=== PATIENT | female | born 2000 | race Caucasian/White ===

== ENCOUNTER 2021-03-29 04:04 | Inpatient (IN) ==
[2021-03-29] MEDS ORDERED: Ondansetron 4 MG/2 ML VIAL IVP PRN (04:13)
[2021-03-29] MEDS ORDERED: Naloxone 0.4 MG/ML INJ IVP PRN (04:13)
[2021-03-29] MEDS ORDERED: Penicillin G Potassium 5,000,000 UNIT in 0.9 % Sodium Chloride Mini Bag 100 ML IVPB ONE (04:13)
[2021-03-29] MEDS ORDERED: Famotidine 20 MG/2 ML VIAL IVP PRN (04:13)
[2021-03-29] MEDS ORDERED: Lidocaine 1% 20 ML MDV INFILT PRN (04:13)
[2021-03-29] MEDS ORDERED: Metoclopramide 10 MG/2 ML VIAL IVP PRN (04:13)
[2021-03-29] MEDS ORDERED: *HR* Nalbuphine 10 MG/ML AMPUL IV PRN (04:13)
[2021-03-29] MEDS ORDERED: miSOPROStoL 25 MCG TABLET PO PRN (04:13)
[2021-03-29] MEDS ORDERED: Ringers Solution, Lactated 1,000 ML IVC SCH (04:15)
[2021-03-29 04:56] LABS: Basophils % 0.1 %; Eosinophils # 0.1 K/mcL (0.0-0.6); Eosinophils % 0.8 %; Hematocrit 38.4 % (35.3-44.9); Hemoglobin 12.7 g/dL (11.5-15.4); Immature Granulocytes % 0.4 % (0-4); Lymphocytes # 2.4 K/mcL (0.6-4.6); Mean Corpuscular HGB Conc 33.1 g/dL (31.6-35.5); Mean Corpuscular Hemoglobin 28.8 pg (28.0-33.3); Mean Corpuscular Volume 87.1 fL (83.0-100.0); Mean Platelet Volume 11.2 fL (9.4-12.4); Monocytes # 0.7 K/mcL (0.0-1.3); Monocytes % 6.2 %; Neutrophils # 7.4 K/mcL (1.6-8.9); Platelet Count 245 K/mcL (140-400); Red Blood Count 4.41 M/mcL (3.82-4.97); Red Cell Distribution Width 14.2 % (11.5-14.5); Segmented Neutrophils % 69.5 %; White Blood Count 10.6 K/mcL (4.3-11.1)
[2021-03-29 05:16] LABS: Alanine Aminotransferase 9 Units/L (7-52); Aspartate Amino Transferase 12 Units/L (13-39); BUN/Creatinine Ratio 14 (6-26); Blood Urea Nitrogen 6 mg/dL (6-20); Lactate Dehydrogenase 120 Units/L (140-271); Uric Acid 5.2 mg/dL (2.3-7.6); eGFR For African Americans > 60 (> 60); eGFR For Non-African Americans > 60 (> 60)
[2021-03-29 05:28] LABS: Influenza A PCR Negative (Negative); Influenza B PCR Negative (Negative); Resp. Syncytial Virus PCR Negative (Negative)
[2021-03-29 05:59] LABS: SARS-CoV-2 by PCR (In House) Positive (Negative)
[2021-03-29] MEDS ORDERED: Penicillin G Potassium 2,500,000 UNIT/105 ML MLS IVPB SCH (08:00)
== END 2021-03-29 09:18 | disposition home or self-care (01) | DRG 831 ==
LOC: 1NENULAB 04:04
PROVIDERS: ADMIT Advanced Practice Midwife; ATTEND Advanced Practice Midwife

== ENCOUNTER 2021-04-07 01:11 | Inpatient (IN) ==
[~2021-04-07 01:11] MED LIST: *HR* Nalbuphine 10 MG/ML AMPUL IV PRN; Famotidine 20 MG/2 ML VIAL IVP PRN; Lidocaine 1% 20 ML MDV INFILT PRN; Metoclopramide 10 MG/2 ML VIAL IVP PRN; Naloxone 0.4 MG/ML INJ IVP PRN; Ondansetron 4 MG/2 ML VIAL IVP PRN
[2021-04-07] MEDS ORDERED: Ringers Solution, Lactated 1,000 ML IVC SCH (01:15)
[2021-04-07] MEDS ORDERED: Penicillin G Potassium 5,000,000 UNIT in 0.9 % Sodium Chloride Mini Bag 100 ML IVPB ONE (01:21)
[2021-04-07 01:34] LABS: Basophils % 0.2 %; Eosinophils # 0.1 K/mcL (0.0-0.6); Eosinophils % 0.4 %; Hematocrit 38.7 % (35.3-44.9); Hemoglobin 12.8 g/dL (11.5-15.4); Immature Granulocytes % 0.5 % (0-4); Lymphocytes # 2.2 K/mcL (0.6-4.6); Lymphocytes % 13.1 %; Mean Corpuscular HGB Conc 33.1 g/dL (31.6-35.5); Mean Corpuscular Hemoglobin 28.8 pg (28.0-33.3); Mean Platelet Volume 10.7 fL (9.4-12.4); Monocytes # 1.1 K/mcL (0.0-1.3); Monocytes % 6.7 %; Neutrophils # 13.5 K/mcL (1.6-8.9); Platelet Count 310 K/mcL (140-400); Red Blood Count 4.45 M/mcL (3.82-4.97); Red Cell Distribution Width 14.2 % (11.5-14.5); Segmented Neutrophils % 79.1 %
[2021-04-07] MEDS ORDERED: EPHEDrine 50 MG/ML VIAL IVP PRN (02:05)
[2021-04-07] MEDS ORDERED: Epidural Premix (fent/bupiv) 110 ML EP SCH (02:15)
[2021-04-07 03:35] LABS: Amphetamine Screen,Urine Negative ng/mL (Cutoff=1000); Barbiturate Screen,Urine Negative ng/mL (Cutoff=200); Benzodiazepines Screen,Urine Negative ng/mL (Cutoff=200); Cannabinoid Screen,Urine Negative ng/mL (Cutoff = 50); Cocaine Screen,Urine Negative ng/mL (Cutoff= 300); Opiate Screen,Urine Negative ng/mL (Cutoff=300); Phencyclidine Screen,Urine Negative ng/mL (Cutoff=25)
[2021-04-07] MEDS ORDERED: Penicillin G Potassium 2,500,000 UNIT/105 ML MLS IVPB SCH (04:00)
[2021-04-07] MEDS ORDERED: Oxytocin 20 units/ LR 1000 mL 20 UNIT/1,000 ML BAG IVC SCH ×2 (05:30→10:36)
[2021-04-07] MEDS ORDERED: Ondansetron ODT 4 MG TAB.RAPDIS SL PRN (10:36)
[2021-04-07] MEDS ORDERED: Lanolin 7 G OINT...G. TP PRN (10:36)
[2021-04-07] MEDS ORDERED: Rho Immune Globulin 1,500 UNIT SYRINGE IM PRN (10:36)
[2021-04-07] MEDS ORDERED: Benzocaine/Menthol 56 GM AEROSOL SPRAY TP PRN (10:36)
[2021-04-07] MEDS ORDERED: Measles/Mumps/Rubella Vacc 0.5 ML VIAL SQ PRN (10:36)
[2021-04-07] MEDS ORDERED: Oxytocin 20 units/ LR 1000 mL 20 UNIT/1,000 ML BAG IVC ONE (10:36)
[2021-04-07] MEDS: Prenatal Vit/FA 1 EACH TABLET PO SCH (10:57)
[2021-04-07] MEDS: Ibuprofen 600 MG TABLET PO SCH ×3 (12:06→20:19)
[2021-04-07] MEDS: Acetaminophen 325 MG TABLET PO SCH ×3 (12:07→20:19)
[2021-04-08 05:52] VITALS: O2SAT 98
[2021-04-08 05:54] LABS: Basophils % 0.2 %; Eosinophils # 0.2 K/mcL (0.0-0.6); Eosinophils % 1.6 %; Hematocrit 32.9 % (35.3-44.9); Immature Granulocytes % 0.6 % (0-4); Lymphocytes % 20.7 %; Mean Corpuscular HGB Conc 33.4 g/dL (31.6-35.5); Mean Corpuscular Volume 86.8 fL (83.0-100.0); Mean Platelet Volume 11.2 fL (9.4-12.4); Monocytes # 0.8 K/mcL (0.0-1.3); Monocytes % 5.8 %; Neutrophils # 10.3 K/mcL (1.6-8.9); Platelet Count 253 K/mcL (140-400); Red Blood Count 3.79 M/mcL (3.82-4.97); Red Cell Distribution Width 14.6 % (11.5-14.5); Segmented Neutrophils % 71.1 %; White Blood Count 14.5 K/mcL (4.3-11.1)
[2021-04-08] MEDS: Prenatal Vit/FA 1 EACH TABLET PO SCH (08:14)
[2021-04-08 08:23] VITALS: BP 120/77; PULSE 97; TEMP 97.7
[2021-04-08] MEDS: Acetaminophen 325 MG TABLET PO SCH (15:29)
[2021-04-08] MEDS: Ibuprofen 600 MG TABLET PO SCH (15:30)
== END 2021-04-08 17:05 | disposition home or self-care (01) | DRG 807 ==
LOC: 1NENULAB → 1NENUOBS 10:49
PROVIDERS: ADMIT Advanced Practice Midwife; ATTEND Advanced Practice Midwife